=== PATIENT | female | born 1930 | race Caucasian/White ===

== ENCOUNTER → 2016-12-12 | Outpatient (CLI) | payer MEDICARE, MEDICAID ==
[~2016-12-12] MED LIST: ACET325T51 PO; ALLO100T PO; AMLO10TA2 PO; BUDE0.5A AEROSOL; BUDE0.5A6 ORAL INH; CALC0.253 PO; CAPT12.55 PO; CHOL100017 PO; CYAN200018 PO; CYCL5TAB PO; DEXT1DRO7 BOTH EYES; DICL100G5 TOP; DOCU-168 PO; FOLI0.8T PO; GUAI-1210 PO; GUAI600T PO; HYDR-3995 PO; HYDR30CR53 TOP; MAGN800O PO; MELA3TAB30 PO; MIRT30TA PO; OMEP-122 PO; PARO40TA PO; POLY17PO6 PO; POTA20TA87 PO; ROSU5TAB3 PO; SODI650T9 PO; TEMA7.5C20 PO; UREA85CR TOP; VANC750V IV; WARF1TAB6 PO; WARF2TAB6 PO
[2016-12-12 06:47] LABS: ANION GAP 11 MEQ/L (5-15); BUN/CREATININE RATIO 13 RATIO (6-26); CALCIUM 9.1 MG/DL (8.4-10.2); CHLORIDE 106 MEQ/L (98-107); CO2 - CARBON DIOXIDE 23 MEQ/L (22-30); CREATININE 1.4 MG/DL (0.7-1.2); GLOMERULAR FILTRATION RATE 36; GLUCOSE 86 MG/DL (65-110); SODIUM 140 MEQ/L (134-144)
== END ==
LOC: LABNH.A212 02:07
PROVIDERS: ATTEND Family Medicine
DX: Z79.01 Long term (current) use of anticoagulants (principal)
CPT/HCPCS: 36415; 80048; P9604

== ENCOUNTER → 2016-12-17 | Outpatient (CLI) | payer MEDICARE, MEDICAID ==
[2016-12-17 07:25] LABS: INR 1.39 (0.76-1.04); PROTHROMBIN TIME 15.1 SEC (9.31-12.49)
== END ==
LOC: LABNH.A212 00:08
PROVIDERS: ATTEND Family Medicine
DX: Z79.01 Long term (current) use of anticoagulants (principal)
CPT/HCPCS: 36415; 85610; P9604

== ENCOUNTER → 2016-12-26 | Outpatient (CLI) | payer MEDICARE, MEDICAID ==
[2016-12-26 08:53] LABS: INR 1.87 (0.76-1.04); PROTHROMBIN TIME 20.4 SEC (9.31-12.49)
== END ==
LOC: LABNH.A212 01:09
PROVIDERS: ATTEND Family Medicine
DX: Z79.01 Long term (current) use of anticoagulants (principal)
CPT/HCPCS: 36415; 85610; P9604

== ENCOUNTER → 2017-01-03 | Outpatient (CLI) | payer MEDICARE, MEDICAID ==
[2017-01-03 06:27] LABS: INR 1.25 (0.76-1.04); PROTHROMBIN TIME 13.6 SEC (9.31-12.49)
== END ==
LOC: LABNH.A212 00:10
PROVIDERS: ATTEND Family Medicine
DX: Z79.01 Long term (current) use of anticoagulants (principal)
CPT/HCPCS: 36415; 85610; P9604

== ENCOUNTER → 2017-01-07 | Outpatient (CLI) | payer MEDICARE, MEDICAID ==
[2017-01-07 07:19] LABS: INR 1.72 (0.76-1.04); PROTHROMBIN TIME 18.8 SEC (9.31-12.49)
== END ==
LOC: LABNH.A212 02:15
PROVIDERS: ATTEND Family Medicine
DX: Z79.01 Long term (current) use of anticoagulants (principal)
CPT/HCPCS: 36415; 85610; P9604

== ENCOUNTER → 2017-01-09 | Outpatient (CLI) | payer MEDICARE, MEDICAID | LOC: LABNH.A212 20:19 | PROVIDERS: ATTEND Family Medicine | DX: Z53.8 Procedure and treatment not carried out for other reasons (principal) ==

== ENCOUNTER → 2017-01-11 | Outpatient (CLI) | payer MEDICARE, MEDICAID ==
[2017-01-11 06:29] LABS: INR 1.21 (0.76-1.04); PROTHROMBIN TIME 13.2 SEC (9.31-12.49)
== END ==
LOC: LABNH.A212 00:35
PROVIDERS: ATTEND Family Medicine
DX: Z79.01 Long term (current) use of anticoagulants (principal)
CPT/HCPCS: 36415; 85610; P9604

== ENCOUNTER → 2017-01-18 | Outpatient (CLI) | payer MEDICARE, MEDICAID ==
[2017-01-18 06:17] LABS: INR 1.88 (0.76-1.04); PROTHROMBIN TIME 20.5 SEC (9.31-12.49)
== END ==
LOC: LABNH.A212 06:06
PROVIDERS: ATTEND Family Medicine
DX: Z79.01 Long term (current) use of anticoagulants (principal)
CPT/HCPCS: 36415; 85610; P9604

== ENCOUNTER → 2017-01-23 | Outpatient (CLI) | payer MEDICARE, MEDICAID ==
[2017-01-23 07:43] LABS: INR 1.2 (0.76-1.04); PROTHROMBIN TIME 13.1 SEC (9.31-12.49)
== END ==
LOC: LABNH.A212 00:52
PROVIDERS: ATTEND Family Medicine
DX: Z79.01 Long term (current) use of anticoagulants (principal)
CPT/HCPCS: 36415; 85610; P9604

== ENCOUNTER → 2017-01-27 | Outpatient (CLI) | payer MEDICARE, MEDICAID ==
[2017-01-27 21:33] LABS: C. DIFFICILE TOXIN B NEGATIVE (NEGATIVE)
== END ==
LOC: LABN.A1212 20:29 → LABN.AP 20:29
PROVIDERS: ATTEND Family Medicine
DX: A04.7 Enterocolitis due to Clostridium difficile (principal)
CPT/HCPCS: 87493

== ENCOUNTER → 2017-01-30 | Outpatient (CLI) | payer MEDICARE, MEDICAID ==
[2017-01-30 09:20] LABS: ANION GAP 15 MEQ/L (5-15); BUN/CREATININE RATIO 18 RATIO (6-26); CALCIUM 9.6 MG/DL (8.4-10.2); CHLORIDE 110 MEQ/L (98-107); CO2 - CARBON DIOXIDE 22 MEQ/L (22-30); CREATININE 1.4 MG/DL (0.7-1.2); GLOMERULAR FILTRATION RATE 36; GLUCOSE 89 MG/DL (65-110); POTASSIUM 4.4 MEQ/L (3.6-5); SODIUM 147 MEQ/L (134-144)
[2017-01-30 09:33] LABS: INR 1.41 (0.76-1.04); PROTHROMBIN TIME 15.4 SEC (9.31-12.49)
== END ==
LOC: LABNH.A212 01:33
PROVIDERS: ATTEND Family Medicine
DX: Z79.01 Long term (current) use of anticoagulants (principal)
CPT/HCPCS: 36415; 80048; 85610; P9604

== ENCOUNTER → 2017-02-06 | Outpatient (CLI) | payer MEDICARE, MEDICAID ==
[2017-02-06 12:55] LABS: INR 1.61 (0.76-1.04); PROTHROMBIN TIME 17.6 SEC (9.31-12.49)
== END ==
LOC: LABNH.A212 01:42
PROVIDERS: ATTEND Family Medicine
DX: Z79.01 Long term (current) use of anticoagulants (principal)
CPT/HCPCS: 36415; 85610; P9604

== ENCOUNTER → 2017-02-13 | Outpatient (CLI) | payer MEDICARE, MEDICAID ==
[2017-02-13 08:29] LABS: INR 1.75 (0.76-1.04); PROTHROMBIN TIME 19.1 SEC (9.31-12.49)
== END ==
LOC: LABNH.A212 01:14
PROVIDERS: ATTEND Family Medicine
DX: Z79.01 Long term (current) use of anticoagulants (principal)
CPT/HCPCS: 36415; 85610; P9604

== ENCOUNTER → 2017-02-20 | Outpatient (CLI) | payer MEDICARE, MEDICAID ==
[2017-02-20 08:04] LABS: INR 1.48 (0.77-1.03); PROTHROMBIN TIME 16.2 SEC (9.48-12.52)
== END ==
LOC: LABNH.A212 02:00
PROVIDERS: ATTEND Family Medicine
DX: Z79.01 Long term (current) use of anticoagulants (principal)
CPT/HCPCS: 36415; 85610